=== PATIENT | male | born 1990 | race Caucasian/White ===

== ENCOUNTER 2024-06-24 17:11 | Emergency (ER) | payer OTHER ==
[~2024-06-24] VITALS: Ht 175.3 cm; Wt 113.4 kg
[2024-06-24 17:15] VITALS: O2SAT 99
[2024-06-24] MEDS ORDERED: IBUP-2028 MT (19:43)
[2024-06-24] MEDS ORDERED: CLIN-194 MT (19:43)
[2024-06-24] MEDS ORDERED: PROP1DRO2 MT (19:43)
[2024-06-24 21:22] VITALS: BP 129/74; PULSE 78; RESP 19; TEMP 36.6; O2SAT 99
== END 2024-06-24 21:23 | disposition home or self-care (01) ==
LOC: ER 17:11
DX: K04.7 Periapical abscess without sinus (principal); H00.14 Chalazion left upper eyelid; Z98.890 Other specified postprocedural states
CPT/HCPCS: 99283